=== PATIENT | male | born 1975 | race Two or more races ===

== ENCOUNTER 2020-07-22 13:54 | Emergency (ER) | payer OTHER ==
[~2020-07-22] VITALS: Ht 177.8 cm; Wt 102.6 kg
[2020-07-22] MEDS ORDERED: LISI1POW PO (14:28)
[2020-07-22 15:07] VITALS: BP 123/62
== END 2020-07-22 15:10 | disposition home or self-care (01) ==
LOC: ED 14:51
DX: B34.9 Viral infection, unspecified (principal); Z20.828 Contact with and (suspected) exposure to other viral communicable diseases
CPT/HCPCS: 71045; 87635; 99284